=== PATIENT | female | born 1980 | race Caucasian/White ===

== ENCOUNTER 2017-12-23 04:30 | Emergency (ER) | payer BC ==
[~2017-12-23] VITALS: Ht 162.6 cm; Wt 90.7 kg
[~2017-12-23 04:30] MED LIST: ATENOLOL 25 MG25 M1 PO; CELEXA40 MG PO; NAPROSYN500 MG PO; ROBAXIN500 MG PO
[2017-12-23 04:59] VITALS: BP 152/85
== END 2017-12-23 05:06 | disposition home or self-care (01) ==
LOC: M.ERS 04:30
DX: R51 Headache (principal); F41.9 Anxiety disorder, unspecified; Z88.8 Allergy status to other drugs, medicaments and biological substances